=== PATIENT | female | born 1945 | race Caucasian/White ===

== ENCOUNTER 2019-08-08 10:57 | Emergency (ER) | payer MEDICARE ==
[~2019-08-08] VITALS: Ht 162.6 cm; Wt 80.7 kg
--- NOTE | 2019-08-08 11:35 | RAD ---
EXAM: 3 views left elbow DATE: 08/08/2019 11:13 AM INDICATION: Fall, left elbow pain COMPARISON: No Prior FINDINGS: No evidence of acute fracture or dislocation. No joint effusion. Soft tissue swelling about the olecranon. IMPRESSION: 1. Soft tissue swelling about the olecranon. 2. No evidence of acute fracture or dislocation. 3. If there is persistent clinical concern for fracture, follow-up radiographs in 10-14 days is recommended. Electronically signed by: Bradley Hagen MD (08/08/2019 11:33 AM) [id number]
--- NOTE | 2019-08-08 11:36 | RAD ---
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 Mild triscaphe joint space narrowing. No acute fracture or dislocation. Mild soft tissue swelling about the dorsal and ulnar aspect of the left wrist. Electronically signed by: Bradley Hagen MD (08/08/2019 11:34 AM) [id number]
[2019-08-08] MEDS ORDERED: DICL50TA4 PO (12:28)
--- NOTE | 2019-08-08 12:28 | PHYS DOC ---
Past History Past Medical History: COPD, GERD, High Cholesterol Past Surgical History: , Hysterectomy, Tonsillectomy, Other Additional Past Surgical Histo: colon resection; right knee replacement; right breast lumpectomy; cataract Alcohol Use: None Drug Use: None Adult General Chief Complaint Chief Complaint: ELBOW PROBLEM [facility] HPI Patient is a 73-year-old female who presents with complaint of left elbow pain after falling last night. Patient states that she had struck her elbow when she fell up against a dresser. She also does report that she's got some mild back pain but states that the majority of her pain is in her elbow. She states that there is some pain in her left wrist as well and thinks she may have hurt the wrist, when she went to break her fall. She denies any head injury or loss of consciousness. Patient states that pain is a 6 out of 10. She states that pain is worsened with movement.[] Review of Systems Review of Systems Constitutional: Denies fever or chills [] Respiratory: Denies cough or shortness of breath [] Cardiovascular: No additional information not addressed in HPI [] Musculoskeletal: Positive left elbow pain [] Integument: Denies rash or skin lesions [] Neurologic: Denies headache, focal weakness or sensory changes [] Allergies Allergies Allergies Coded Allergies Type Severity Reaction Last Updated Verified Penicillins Allergy Unknown 08/08/19 Yes latex Allergy Unknown 08/08/19 Yes levofloxacin Allergy Unknown 08/08/19 Yes Uncoded Allergies Type Severity Reaction Last Updated Verified sulfur Allergy Unknown 08/08/19 tape Allergy Unknown 08/08/19 Physical Exam Physical Exam Constitutional: Well developed, well nourished, no acute distress, non-toxic appearance. [] Cardiovascular: Regular rate and rhythm[] Lungs & Thorax: Bilateral breath sounds clear to auscultation [] Skin: Warm, dry, no erythema, no rash. [] Extremities: Examination of left elbow does demonstrate some tissue swelling with tenderness to palpation primarily overlying the olecranon process. Active range of motion is intact. [] Neurologic: Alert and oriented X 3, no focal deficits noted. 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 Mild triscaphe joint space narrowing. No acute fracture or dislocation. Mild soft tissue swelling about the dorsal and ulnar aspect of the left wrist. Electronically signed by: Bradley Hagen MD (08/08/2019 11:34 AM) [id number] PROCEDURE: ELBOW LEFT 3V EXAM: 3 views left elbow DATE: 08/08/2019 11:13 AM INDICATION: Fall, left elbow pain COMPARISON: No Prior FINDINGS: No evidence of acute fracture or dislocation. No joint effusion. Soft tissue swelling about the olecranon. IMPRESSION: 1. Soft tissue swelling about the olecranon. 2. No evidence of acute fracture or dislocation. 3. If there is persistent clinical concern for fracture, follow-up radiographs in 10-14 days is recommended. Electronically signed by: Bradley Hagen MD (08/08/2019 11:33 AM) [id number] Course & Med Decision Making Course & Med Decision Making Pertinent Labs and Imaging studies reviewed. (See chart for details) [] Dragon Disclaimer Dragon Disclaimer This electronic medical record was generated, in whole or in part, using a voice recognition dictation system. Departure Departure: Impression: Primary Impression: Elbow contusion Additional Impression: Left wrist sprain Disposition: 01 HOME, SELF-CARE Condition: STABLE Referrals: PCP,NO (PCP) Patient Instructions: Elbow Contusion, Wrist Sprain with [facility]hab[facility] Scripts Diclofenac Sodium (DICLOFENAC SODIUM) 50 Mg Tablet. 1 TAB PO BID PRN for PAIN, #20 TAB Prov: VAL MARTINEZ Jr. DO 08/08/19 Problem Qualifiers Primary Impression: Elbow contusion Encounter type: initial encounter Laterality: left Qualified Codes: S5 0.02XA - Contusion of left elbow, initial encounter Additional Impression: Left wrist sprain Encounter type: initial encounter Qualified Codes: S63.502A - Unspecified sprain of left wrist, initial encounter VAL MARTINEZ Jr. DO Aug 08, 2019 12:28
[2019-08-08 12:50] VITALS: BP 136/73
== END 2019-08-08 12:49 | disposition home or self-care (01) ==
LOC: ER 10:57
DX: S63.502A Unspecified sprain of left wrist, initial encounter (principal); S50.02XA Contusion of left elbow, initial encounter; J44.9 Chronic obstructive pulmonary disease, unspecified; K21.9 Gastro-esophageal reflux disease without esophagitis; E78.00 Pure hypercholesterolemia, unspecified; Z88.0 Allergy status to penicillin; Z91.040 Latex allergy status; W18.09XA Striking against other object with subsequent fall, initial encounter; Y93.89 Activity, other specified; Y92.89 Other specified places as the place of occurrence of the external cause; Y99.8 Other external cause status
CPT/HCPCS: 29125; 73080; 73110; 99284